=== PATIENT | male | born 1965 | race Caucasian/White ===

== ENCOUNTER 2018-06-29 09:39 | Emergency (ER) | payer OTHER ==
[2018-06-29 10:01] VITALS: BP 117/75; PULSE 94; TEMP 98.3; BMI 37.3
--- NOTE | 2018-06-29 10:08 | PDOC ---
History of Present Illness - General History Source: Patient Exam Limitations: No Limitations - History of Present Illness Initial Comments: 06/29/18 11:26 The patient is a 53 year old male, with a significant past medical history of HTN, HLD and asthma, who presents to the ED complaining of bilateral knee pain for the past 4 months that has exacerbated today. He reports that his knee pain is moderate, without radiation. He notes that certain movements exacerbates his pain. He reports that his knee pain is causing him to fall and has fell many times due to his knee pain. He notes that he has an appointment this week to see his PMD but could not wait and decided to come to the ED. He reports that he was on steroids last month due to asthma and also took 800 mg of Motrin this morning. The patient denies chest pain, shortness of breath, headache and dizziness. Allergies: Penicillin, shellfish Past surgical history: None reported Social History: No alcohol, tobacco or drug use reported <Javier Cuenca - Last Filed: 06/29/18 11:26> <Bekah Lai - Last Filed: 06/29/18 14:55> - General Chief Complaint: Weakness Stated Complaint: LEGS PAIN Time Seen by Provider: 06/29/18 10:08 Past History <Javier Cuenca - Last Filed: 06/29/18 11:26> - Past Medical History Asthma: Yes COPD: No HTN: Yes Hypercholesterolemia: Yes - Immunization History Immunization Up to Date: Yes - Suicide/Smoking/Psychosocial Hx Smoking History: Never smoked Hx Alcohol Use: No Drug/Substance Use Hx: No <Bekah Lai - Last Filed: 06/29/18 14:55> - Past Medical History Allergies/Adverse Reactions: Allergies Allergy/AdvReac Type Severity Reaction Status Date / Time Penicillins Allergy Severe Verified 06/29/18 09:58 shellfish derived Allergy Intermediate Swelling Verified 06/29/18 09:58 Home Medications: Ambulatory Orders Hydrocortisone 2.5% Topical Cr [Anusol-Hc -] 1 applic TP BID #1 tube 06/03/18 Prednisone [Deltasone] 20 mg PO BID 3 Days #6 tablet 06/03/18 Ibuprofen [Motrin -] 600 mg PO TID PRN #21 tablet 06/29/18 Review of Systems - Review of Systems Able to Perform ROS?: Yes Comments:: 06/29/18 11:26 GENERAL/CONSTITUTIONAL: No fever or chills. No weakness. HEAD, EYES, EARS, NOSE AND THROAT: No change in vision. No ear pain or discharge. No sore throat. GASTROINTESTINAL: No nausea, vomiting, diarrhea or constipation. GENITOURINARY: No dysuria, frequency, or change in urination. CARDIOVASCULAR: No chest pain or shortness of breath. RESPIRATORY: No cough, wheezing, or hemoptysis. MUSCULOSKELETAL: (+) Bilateral knee pain. No neck or back pain. SKIN: No rash NEUROLOGIC: No headache, vertigo, loss of consciousness, or change in strength/ sensation. ENDOCRINE: No increased thirst. No abnormal weight change. HEMATOLOGIC/LYMPHATIC: No anemia, easy bleeding, or history of blood clots. ALLERGIC/IMMUNOLOGIC: No hives or skin allergy. <Javier Cuenca - Last Filed: 06/29/18 11:26> *Physical Exam - Vital Signs Last Vital Signs Temp Pulse Resp BP Pulse Ox 98.3 F 94 H 20 117/75 95 06/29/18 09:59 06/29/18 09:59 06/29/18 09:59 06/29/18 09:59 06/29/18 09:59 - Physical Exam Comments: 06/29/18 11:27 Constitutional: Awake, alert, oriented. No acute distress. Head: Normocephalic. Atraumatic Eyes: PERRL. EOMI. Conjunctivae are not pale. ENT: Mucous membranes are moist and intact. Posterior pharynx without exudates or erythema. Uvula midline. Neck: Supple. Full ROM. No lymphadenopathy. Cardiovascular: Regular rate. Regular rhythm. S1, S2 regular. Distal pulses are 2+ and symmetric. Pulmonary/Chest: No evidence of respiratory distress. Clear to auscultation bilaterally No wheezing, rales or rhonchi. Abdominal: Soft and non-distended. There is no tenderness. No rebound, guarding or rigidity. No organomegaly. No palpable masses. Good bowel sounds. Back: No CVA tenderness. Musculoskeletal: No edema. No cyanosis. No clubbing. Full range of motion in all extremities. Nocalf tenderness. Radial/pedal pulses are intact and 2+ bilaterally Skin: Skin is warm and dry. No petechiae. No purpura. Neurological: Alert and oriented to person, place, and time. Cranial nerves II -XII are grossly intact. Normal speech. Strength is grossly symmetric. No sensory deficits. Psychiatric: Good eye contact. Normal interaction, affect and behavior. <Javier Cuenca - Last Filed: 06/29/18 11:26> - Vital Signs Last Vital Signs Temp Pulse Resp BP Pulse Ox 98.3 F 94 H 20 117/75 95 06/29/18 09:59 06/29/18 09:59 06/29/18 09:59 06/29/18 09:59 06/29/18 09:59 - Physical Exam Comments: pt with psoariatic plaques to entire body 06/29/18 14:55 <Bekah Lai - Last Filed: 06/29/18 14:55> ED Treatment Course - LABORATORY CBC & Chemistry Diagram: 06/29/18 11:20 06/29/18 11:20 - ADDITIONAL ORDERS Additional order review: Laboratory Results 06/29/18 11:20 C-Reactive Protein Cancelled <Javier Cuenca - Last Filed: 06/29/18 11:26> - LABORATORY CBC & Chemistry Diagram: 06/29/18 11:20 06/29/18 11:20 <Bekah Lai - Last Filed: 06/29/18 14:55> Medical Decision Making - Medical Decision Making 06/29/18 10:52 a/p: 53yo male with psoriasis and asthma with knee pain and weakness -has never seen a rheum or derm for his psoriasis -knee pain has kept him out of work and he has fallen from the pain -no head injuries -no cp/sob -concern for psoriatic arthritis as cause of pain -will send labs, esr, crp -pt took motrin 800mg and is feeling better currently and denies pain -no swelling/warmth/erythema or laxity of the joint -trace edema in legs - will send for duplex u/s and knee xrays to eval the joints -will give ivf hydration -will monitor and reassess -pt did not take his losartan this AM 06/29/18 13:33 mildly elevated crp on labs otherwise labs reviewed and stable xrays without acute findings pending ultrasound 06/29/18 14:52 pt feeling better negative duplex ultrasound for dvt discussed all labs and imaging discussed need to follow up with rheum and derm as outpt along with his pmd discussed taking nsaids for the joint pain answered all questions pt is stable for d/c to home <Bekah Lai - Last Filed: 06/29/18 14:55> *DC/Admit/Observation/Transfer <Javier Cuenca - Last Filed: 06/29/18 11:26> - Discharge Dispostion Decision to Admit order: No - Attestations Physician Attestion: 06/29/18 11:39 I, Dr. Bekah Lai, DO, attest that this document has been prepared under my direction and personally reviewed by me in its entirety. I further attest, that it accurately reflects all work, treatment, procedures and medical decision -making performed by me. <Bekah Lai - Last Filed: 06/29/18 14:55> Diagnosis at time of Disposition: Psoriasis, Joint pain - Discharge Dispostion Disposition: HOME Condition at time of disposition: Stable - Prescriptions Prescriptions: Ibuprofen [Motrin -] 600 mg PO TID PRN #21 tablet PRN Reason: Pain - Referrals Referrals: Estela Yin MD [Staff Physician] - Justino Lam MD [Staff Physician] - Eric Velasco MD [Non Staff, Medical] - Newton Khan MD [Staff Physician] - - Patient Instructions Printed Discharge Instructions: DI for Psoriasis, DI for Joint Pain Additional Instructions: Please continue to take motrin every 8 hours as needed for your pain. Please keep your appointment with your PMD this week. Please make an appointment to see the pmo analyst and the water jet operator. Please take the motrin with food or milk. Please return to the ED with any further concerns or complaints.
[2018-06-29] MEDS ORDERED: SODIUM CHLORIDE 0.9% 1000 ML INFUS.BAG IV ONE (10:25)
[2018-06-29] MEDS ORDERED: predniSONE 20 MG TABLET (UD) PO ONE (10:25)
[2018-06-29 11:28] LABS: BASO % 1.4 % (0-2.0); EOS % 8.1 % (0-4.5); HEMATOCRIT 38.4 % (35.4-49); HEMOGLOBIN 13.2 GM/dL (11.7-16.9); LYMPH % 28.3 % (8-40); MCH 31.8 pg (25.7-33.7); MCHC 34.4 g/dl (32.0-35.9); MEAN CELL VOLUME 92.3 fl (80-96); MEAN PLT VOLUME 6.9 fl (7.5-11.1); MONO % 8.2 % (3.8-10.2); PLATELET COUNT 292 K/MM3 (134-434); RBC 4.16 M/mm3 (4.00-5.60); RDW 12.9 % (11.9-15.9); WHITE BLOOD COUNT 5.3 K/mm3 (4.0-10.0)
[2018-06-29 11:51] LABS: ALBUMIN 3.5 g/dl (3.4-5.0); ALK PHOS 71 U/L (45-117); ANION GAP 7 MMOL/L (8-16); BILIRUBIN,TOTAL 0.3 mg/dL (0.2-1); BLOOD UREA NITROGEN 8 mg/dL (7-18); CALCIUM 8.9 mg/dL (8.5-10.1); CHLORIDE 102 mmol/L (98-107); CO2 26 mmol/L (21-32); CREATININE 0.6 mg/dL (0.55-1.3); GLUCOSE,RANDOM 103 mg/dL (74-106); MAGNESIUM 2.4 mg/dL (1.8-2.4); POTASSIUM 4.3 mmol/L (3.5-5.1); SGOT/AST 40 U/L (15-37); SGPT/ALT 41 U/L (13-61); SODIUM 135 mmol/L (136-145); TOT PROT 7.1 g/dl (6.4-8.2)
== END 2018-06-29 15:13 | disposition home or self-care (01) ==
LOC: JER 09:39
DX: M25.561 Pain in right knee (principal); M25.562 Pain in left knee; L40.9 Psoriasis, unspecified; Z91.81 History of falling; Z88.0 Allergy status to penicillin; Z91.013 Allergy to seafood; I10 Essential (primary) hypertension; R78.5 Finding of other psychotropic drug in blood; J45.909 Unspecified asthma, uncomplicated
CPT/HCPCS: 36415; 73562-TC-LT-FY; 73562-TC-RT-FY; 80053; 83735; 85025; 85651; 86140; 93970-TC; 99282-25; J7030